=== PATIENT | female | born 1990 | race Caucasian/White ===

== ENCOUNTER 2018-04-18 11:36 | Observation (INO) ==
[2018-04-18] MEDS ORDERED: Sodium Chloride 0.9% 1,000 ML PRIMARY IV SCH (11:45)
[2018-04-18] MEDS ORDERED: EPINEPHrine Inj (1:1,000) 1 mg/ml amp ONE (12:23)
[2018-04-18] MEDS ORDERED: ePHEDrine Inj 50 MG/ML AMP ONE (12:24)
[2018-04-18] MEDS: Acetaminophen 1000mg Inj 1,000 MG/100 ML VIAL IV PRN ×2 (12:47→18:58)
[2018-04-18] MEDS ORDERED: [UNRECOGNIZED DRUG - OTHER] PO ONE (14:52)
[2018-04-18] MEDS ORDERED: Sodium Chloride 0.9% 1,000 ML PRIMARY IV ONE (17:32)
[2018-04-18] MEDS ORDERED: CALCIUM CARBONATE 500 MG (TUMS) CHEWABLE TABLET PO PRN (17:38)
[2018-04-18] MEDS ORDERED: ONDANSETRON 4 MG/2 ML VIAL IVP PRN (17:38)
[2018-04-18] MEDS ORDERED: Ondansetron ODT Tab 4 MG TAB PO PRN (17:38)
--- NOTE | 2018-04-18 17:53 | PDOC ---
HPI - History of Present Illness Date of Service: 04/18/18 Time of Service: 17:48 Chief Complaint: Fever History of Present Illness: 27 yo at 31 4/7 weeks gestation presented to clinic with fever, cough. She states she started getting sick on Tuesday evening with fever, cough. Has gotten progressively worse. Fevers to 103, tachycardia. She did get the flu shot. No specific sick contacts but [place] this [place] and had her baby shower Tuesday. Associated CAPONE. No rash, nausea, vomiting, diarrhea. Reports good FM, no loss of fluid, vaginal bleeding. Rare contractions. Tested positive for Influenza A in the clinic. Last dose of tylenol was 0530. Has been taking 500mg po q6h. Past Medical History Medical History: Preeclampsia Surgical History: Tonsillectomy Pertinent Family History: Mother - MS. Father - Leukemia Tobacco Use: Never Smoker In the Past 12 Months, Have Used or Abuse Any of the Following Substance: None Alcohol Use: None Medication / Allergies Home Medications: Home Medications Medication Instructions Recorded Confirmed Type vitamins no.121-iron 28 1 tab PO QDAY tab 11/14/17 04/19/18 History mg-folic acid 800 mcg tablet aspirin 81 mg chewable tablet 162 mg PO QDAY tab 03/13/18 04/19/18 History acetaminophen 500 mg tablet 500 mg PO Q6H PRN 04/18/18 04/19/18 History Multivitamin Tab 1 tab PO DAILY tab 04/19/18 Rx [ Plus Tab] Allergies/Adverse Reactions: Allergies Allergy/AdvReac Type Severity Reaction Status Date / Time codeine [Codeine] Allergy HIVES Verified 04/19/18 07:02 Penicillins AdvReac Mild UNKNOWN Verified 04/19/18 07:02 Exam - Vitals Vital Signs: Vital Signs Temperature 99.8 F Temperature Source Oral Pulse Rate [Pulse Oximeter] 120 Pulse Rate 120 Respiratory Rate 18 Blood Pressure [Right Arm] 140/70 Blood Pressure [Left Arm] 138/68 Pulse Ox 97 Oxygen Flow Rate 94 Oxygen Delivery Method Room Air Height 5 ft 5 in Weight 224 lb 6 oz - General General Appearance: Mild Distress - Head Head Exam: Normal Inspection - Eye Eye Exam: POSITIVE: Normal Appearance, EOMI - ENT ENT Exam: POSITIVE: Normal Exam - Neck Neck Exam: Normal Inspection, No Lymphadenopathy - Respiratory Respiratory Exam: POSITIVE: Clear to Auscultation - Bilaterally, Breathing Non Labored. NEGATIVE: Rales, Rhonci, Wheezes, Respiratory Distress Additional Respiratory Exam Details: Cough - Cardiovascular Cardiovascular Exam: POSITIVE: Tachycardia - GI/Abdominal Additional GI/Abdominal Exam Details: gravid uterus, heart tones 210 in clinic, 150s after tylenol, fluids - Neurological Neurological Exam: POSITIVE: Alert, Oriented x 3 - Psychiatric Psychiatric Exam: POSITIVE: Normal Affect, Normal Mood Assessment and Plan - Patient Problems (1) Influenza A Status: Acute Code(s): J10.1 - Influenza due to other identified influenza virus with other respiratory manifestations (2) 31 weeks gestation of Status: Acute Code(s): Z3A.31 - 31 weeks gestation of Support Text: 27 yo at 31 4/7 weeks gestation with influenza A -Admit to Inpatient -Xofluza 80 mg given (h/o hallucination on tamiflu) -1L NS bolus then LR at 125cc/hr -Tylenol 1000mg IV q6h for fever -Regular diet -NSTs q4h -Anticipate 24-48 hour stay
[2018-04-18] MEDS: Lactated Ringers 1,000 ML PRIMARY IV SCH (17:54)
[2018-04-19] MEDS: Acetaminophen 1000mg Inj 1,000 MG/100 ML VIAL IV PRN (00:31)
[2018-04-19] MEDS: Lactated Ringers 1,000 ML PRIMARY IV SCH (01:48)
[2018-04-19 08:05] VITALS: RESP 16; TEMP 97; O2SAT 94
[2018-04-19 08:07] VITALS: BP 122/62
[2018-04-19] MEDS ORDERED: Prenatal Multivitamin Tab 1 TAB TAB PO SCH (09:00)
--- NOTE | 2018-04-19 11:32 | DCSUMMARY ---
Hospitalization Summary Admit Date: 04/18/18 Discharge Date: 04/19/18 Primary Diagnosis:: Influenza Hospital Course: 27 yo at 31 5/7 weeks gestation was admitted yesterday for Influenza A with fever, tachycardia. She did receive a dose of Xofluza. T max of 99.8 since admission. HR has come down. Patient is feeling much better. States she didn't get as much rest as she would have liked, but feeling much better. Good FM, no LOF, no VB. tachycardia was noted on admission NST but this too has improved. (See scanned NSTs) Exam - Vitals Vital Signs: Vital Signs Temperature 97 F Temperature Source Temporal Artery Scan Pulse Rate [Pulse Oximeter] 91 Pulse Rate 104 Respiratory Rate 16 Blood Pressure [Right Arm] 122/62 Blood Pressure [Left Arm] 138/68 Pulse Ox 94 Oxygen Flow Rate 94 Oxygen Delivery Method Room Air Height 5 ft 5 in Weight 221 lb 6.4 oz - General General Appearance: No Acute Distress, Cooperative - Head Head Exam: Normal Inspection - Eye Eye Exam: POSITIVE: Normal Appearance, EOMI, No Scleral Icterus - ENT ENT Exam: POSITIVE: Normal Exam - Neck Neck Exam: Normal Inspection - Respiratory Respiratory Exam: POSITIVE: Clear to Auscultation - Bilaterally, Breathing Non Labored. NEGATIVE: Wheezes, Coarse Breath Sounds, Respiratory Distress - Cardiovascular Cardiovascular Exam: POSITIVE: RRR - GI/Abdominal GI/Abdominal Exam: POSITIVE: Normal Bowel Sounds Additional GI/Abdominal Exam Details: gravid uterus, nontender - Extremities Extremities Exam: POSITIVE: Normal Inspection Patient Problems - Patient Problem List (1) Influenza A Status: Acute Code(s): J10.1 - Influenza due to other identified influenza virus with other respiratory manifestations Category: Medical (2) 31 weeks gestation of Status: Acute Code(s): Z3A.31 - 31 weeks gestation of Support Text: Much improved. Push fluids at home, tylenol q6h prn F/u with me next week, sooner for any concerns, precautions Category: Medical
== END 2018-04-19 11:33 | disposition home or self-care (01) ==
LOC: MED/SURG
PROVIDERS: ADMIT Student in an Organized Health Care Education/Training Program; ATTEND Student in an Organized Health Care Education/Training Program

== ENCOUNTER 2018-05-28 17:14 | Observation (INO) ==
[2018-05-28 18:10] LABS: Hematocrit [HCT] 36.4 % (37.0-47.0); Hemoglobin [HGB] 11.9 g/dL (12.0-16.0); MEAN CORPUSCULAR HEMOGLOBIN 29.2 PG (27-31); MEAN CORPUSCULAR HGB CONC 32.7 g/dL (33-37); MEAN CORPUSCULAR VOLUME 89.2 FL (81-99); MEAN PLATELET VOLUME 10.6 FL (7.4-12.2); RED BLOOD COUNT 4.08 10^6/uL (4.20-5.40)
[2018-05-28 18:11] LABS: BLOOD UREA NITROGEN 8 mg/dL (7-22); BUN/CREATININE RATIO 13.33 (6-20); SERUM ALBUMIN 3.4 g/dL (3.5-4.8); Uric Acid 4.7 mg/dl (2.5-6.2)
[2018-05-28] MEDS ORDERED: LIDOCAINE W/ SODIUM BICARB 0.5 ML SYR SUBD PRN (18:25)
[2018-05-28] MEDS ORDERED: CALCIUM CARBONATE 500 MG (TUMS) CHEWABLE TABLET PO PRN (18:25)
[2018-05-28] MEDS ORDERED: ONDANSETRON 4 MG/2 ML VIAL IVP PRN (18:25)
[2018-05-28] MEDS ORDERED: Ondansetron ODT Tab 4 MG TAB PO PRN (18:25)
[2018-05-28] MEDS ORDERED: Lactated Ringers 1,000 ML PRIMARY IV SCH (18:45)
[2018-05-28] MEDS ORDERED: ACETAMINOPHEN 325 MG TABLET PO PRN (20:17)
[2018-05-28] MEDS ORDERED: Zolpidem Tab 5 MG TAB PO ONE (23:13)
[2018-05-29] MEDS ORDERED: ACETAMINOPHEN 500 MG TABLET PO ONE (06:44)
[2018-05-29 07:12] LABS: Hematocrit [HCT] 35.9 % (37.0-47.0); Hemoglobin [HGB] 11.8 g/dL (12.0-16.0); MEAN CORPUSCULAR HEMOGLOBIN 29.1 PG (27-31); MEAN CORPUSCULAR HGB CONC 32.9 g/dL (33-37); MEAN CORPUSCULAR VOLUME 88.6 FL (81-99); MEAN PLATELET VOLUME 10.1 FL (7.4-12.2); RED BLOOD COUNT 4.05 10^6/uL (4.20-5.40)
[2018-05-29 07:21] LABS: BLOOD UREA NITROGEN 6 mg/dL (7-22); SERUM ALBUMIN 3.2 g/dL (3.5-4.8); Uric Acid 4.9 mg/dl (2.5-6.2)
[2018-05-29] MEDS ORDERED: oxyCODONE IR Tab 5 MG TAB PO ONE (08:39)
--- NOTE | 2018-05-29 08:52 | OB.PROGRES ---
Date of Service: 05/29/18 Time of Service: 08:46 Interval History: 27 yo at 39 3/7 weeks gestation who presented last night with a CAPONE, general fatigue, weakness. States she took tylenol at 2 pm, with no relief in her CAPONE. She also complains of increased edema, her has noted edema in her face even. Upon arrival to L&D last night her weight was up 6 lbs from . Her initial BP was 141/79, three hours later she had a 145/71. Since then BPs have been completely normal. She was given ambien and tylenol last night, slept pretty well. This morning she had a CAPONE again, b/l temples, was given 1000mg tylenol with some improvement, but not resolved at this point. She states she feels better than she did yesterday but just feels off. She did not feel like this when she was induced in prior pregnancies with preeclampsia. Good FM, no LOF, VB. Occ contractions, very mild. Objective - Cervical Exam Cervical Exam: Finger tip, posterior, -3 [place]: rare contractions/irritability Heart Rate: baseline 145, mod variability, accels, no decels Heart Rate Interpretation Category: Category I - Labs CBC and BMP: 05/29/18 07:09 05/29/18 07:09 - Vital Signs Last Taken Vital Signs: Vital Signs - Last Taken Temperature 98.1 F 05/29/18 02:30 Pulse Rate 79 05/29/18 02:30 Respiratory Rate 14 05/29/18 02:30 Blood Pressure 133/76 05/29/18 02:30 Pulse Ox 98 05/29/18 02:30 Assessment and Plan - Patient Problems (1) Headache Current Visit: Yes Status: Acute Code(s): R51 - Headache (2) H/O pre-eclampsia in prior , currently Current Visit: No Status: Acute Code(s): O09.299 - Supervision of with other poor reproductive or obstetric history, unspecified trimester Support Text: 27 yo at 37 3/7 weeks gestation. Continued CAPONE, although improved. Will see how she feels after breakfast, tylenol. Will also check a random spot urine protien:Cr ration. Labs and blood pressure reassuring this morning. However if we can't get her CAPONE to resolve, this would technically be a severe feature of preeclampsia, and thus induction necessary.
[2018-05-29] MEDS ORDERED: Prenatal Multivitamin Tab 1 TAB TAB PO SCH (09:00)
[2018-05-29] MEDS ORDERED: MORPHINE SULFATE 2 MG/1 ML IVP ONE ×2 (13:48→15:06)
[2018-05-29] MEDS ORDERED: Promethazine Tab 25 MG TAB PO ONE (13:48)
[2018-05-29 17:11] VITALS: RESP 18; TEMP 97.9; O2SAT 97
[2018-05-29 17:28] VITALS: BP 122/72
--- NOTE | 2018-05-31 15:18 | DCSUMMARY ---
Hospitalization Summary Admit Date: 05/28/18 Discharge Date: 05/29/18 Primary Diagnosis:: CAPONE, h/o preeclampsia Hospital Course: 27 yo at 39 3/7 weeks gestation admitted last night for elevated BP on presentation with CAPONE. She was given ambien to sleep, tylenol. States she did rest but CAPONE did not resolve. We tried tylenol again in the am with no improvement. No improvement with O2. Her CAPONE did completely resolve with morphine and phenergan. Her BP were normal after admission. Labs have been reassuring. Urine spot pr:cr <0.3. monitoring has been normal. While she is high risk for preeclampsia, she does not meet criteria at this point. Will continue an tenatal monitoring. F/u with me tomorrow morning as previously scheduled. Exam - Vitals Vital Signs: Vital Signs Temperature 97.9 F Temperature Source Oral Pulse Rate [Pulse Oximeter] 93 Pulse Rate 79 Respiratory Rate 18 Blood Pressure [Left Arm] 122/72 Pulse Ox 97 Oxygen Delivery Method Room Air Height 5 ft 5 in Weight 231 lb Patient Problems - Patient Problem List (1) Headache Status: Acute Code(s): R51 - Headache Category: Medical (2) H/O pre-eclampsia in prior , currently Status: Acute Code(s): O09.299 - Supervision of with other poor reproductive or obstetric history, unspecified trimester Category: Medical
== END 2018-05-29 17:31 | disposition home or self-care (01) ==
LOC: OBIP 17:14 → OBOP 17:14
PROVIDERS: ADMIT Student in an Organized Health Care Education/Training Program; ATTEND Student in an Organized Health Care Education/Training Program

== ENCOUNTER 2018-06-08 08:53 | Inpatient (IN) ==
[2018-06-08 10:44] LABS: Hematocrit [HCT] 37.3 % (37.0-47.0); Hemoglobin [HGB] 12.1 g/dL (12.0-16.0); MEAN CORPUSCULAR HEMOGLOBIN 28.8 PG (27-31); MEAN CORPUSCULAR HGB CONC 32.4 g/dL (33-37); MEAN CORPUSCULAR VOLUME 88.8 FL (81-99); MEAN PLATELET VOLUME 10.6 FL (7.4-12.2); RED BLOOD COUNT 4.2 10^6/uL (4.20-5.40)
[2018-06-08 10:51] LABS: BLOOD UREA NITROGEN 9 mg/dL (7-22); SERUM ALBUMIN 3.5 g/dL (3.5-4.8); Uric Acid 4.8 mg/dl (2.5-6.2)
--- NOTE | 2018-06-08 11:24 | DI ---
US OB Biophys Profile w/NST,06/08/2018 10:14 AM: Clinical History: Hypertension and nonreactive nonstress test. Previous Exam: June 01, 2018 Findings: Multiple grayscale and color Doppler sonographic images are obtained through the pelvis and demonstra te a single live intrauterine gestation. Detected Doppler heart tones measure 146 beats per minute. There is normal motion of the hemidiaphragms there is normal tone and motion of the extremities. Amniotic fluid index is normal her just measurement in the left upper quadrant measuring a cross-sect ional diameter of 9 x 5 cm. Impression: Normal biophysical profile (09/14).
[2018-06-08] MEDS ORDERED: Carboprost Inj 250 MCG/ML AMP IM PRN (12:13)
[2018-06-08] MEDS ORDERED: fentaNYL Inj 100 MCG/2 ML VIAL IV PRN (12:13)
[2018-06-08] MEDS ORDERED: MISOPROSTOL 200 MCG TABLET RECTAL PRN (12:13)
[2018-06-08] MEDS ORDERED: TERBUTALINE SULFATE 1 MG/1 ML SDV SUBCUT PRN (12:13)
[2018-06-08] MEDS ORDERED: FAMOTIDINE 20 MG/2 ML VIAL IVP PRN ×2 (12:13)
[2018-06-08] MEDS ORDERED: ePHEDrine Inj 50 MG/ML AMP IVP PRN (12:13)
[2018-06-08] MEDS ORDERED: CefOXitin Inj 2 GM in Sodium Chloride 0.9% 100 ML IV PRN (12:13)
[2018-06-08] MEDS ORDERED: LIDOCAINE W/ SODIUM BICARB 0.5 ML SYR SUBD PRN (12:13)
[2018-06-08] MEDS ORDERED: Naloxone Inj 0.01 MG in Sodium Chloride 0.9% vial 1 ML IVP PRN (12:13)
[2018-06-08] MEDS ORDERED: Metoclopramide Inj 10 MG/2 ML VIAL IV PRN (12:13)
[2018-06-08] MEDS ORDERED: LIDOCAINE HCL 2 % 10 ML JELLY URO-JECT TOPICAL PRN (12:13)
[2018-06-08] MEDS ORDERED: Misoprostol Tab 100 MCG TAB VAGINAL PRN (12:13)
[2018-06-08] MEDS ORDERED: Phenylephrine Inj 50 MCG in Sodium Chloride 0.9% vial 0.5 ML IVP PRN (12:13)
[2018-06-08] MEDS ORDERED: OXYTOCIN 10 UNIT/1 ML IM PRN (12:13)
[2018-06-08] MEDS ORDERED: diphenhydrAMINE 50 MG/1 ML VIAL IVP PRN (12:13)
[2018-06-08] MEDS ORDERED: Zolpidem Tab 5 MG TAB PO PRN (12:13)
[2018-06-08] MEDS ORDERED: CITRIC ACID/SODIUM CITRATE 30 ML CUP PO PRN (12:13)
[2018-06-08] MEDS ORDERED: Lidocaine 1% 10 MG/ML - 20 ML VIAL SUBCUT PRN (12:13)
[2018-06-08] MEDS ORDERED: BUTORPHANOL TARTRATE 2 MG/1 ML VIAL IVP PRN (12:13)
[2018-06-08] MEDS ORDERED: Nalbuphine Inj 20 MG/ML Ampule IVP PRN (12:13)
[2018-06-08] MEDS ORDERED: NALOXONE 0.4 MG/1 ML VIAL IVP PRN (12:13)
[2018-06-08] MEDS ORDERED: METHYLERGONOVINE MALEATE 0.2 MG/1 ML VIAL IM PRN (12:13)
[2018-06-08] MEDS ORDERED: ONDANSETRON 4 MG/2 ML VIAL IVP PRN (12:13)
[2018-06-08] MEDS ORDERED: CALCIUM CARBONATE 500 MG (TUMS) CHEWABLE TABLET PO PRN (12:13)
[2018-06-08] MEDS ORDERED: Oxytocin 20 Units + LR 20 UNIT/1,000 ML BAG IV SCH (12:15)
[2018-06-08] MEDS ORDERED: Misoprostol Tab 100 MCG TAB VAGINAL ONE (12:22)
[2018-06-08] MEDS: Lactated Ringers-OB Dept 1,000 ML PRIMARY IV SCH ×2 (14:23→17:38)
--- NOTE | 2018-06-08 14:25 | DI ---
US OB , Limited,06/08/2018 10:00 AM: Clinical History: Preeclampsia. Previous Exam: May 09, 2018 Findings: Multiple grayscale and color Doppler sonographic images are obtained through the pelvis, and demonstr ate a single live intrauterine gestation in vertex presentation. Amniotic fluid index is normal (18.8 cm). Doppler heart tones were not visible on this exam. Estimated gestational age is determined by a composite of biparietal diameter, head circumference, ab dominal circumference and femur length yielding an estimated gestational age by ultrasound of 37 week s one day. The head circumference lies at the 4th percentile. Estimated weight was 3127 g (29th percentile). Detected Doppler heart tones measure 146 beats per minute. Impression: Single live intrauterine gestation with size equal to dates. Head circumference lies at the 4th percentile while biparietal diameter lies at the 29th percentile.
[2018-06-08] MEDS ORDERED: ACETAMINOPHEN 325 MG TABLET PO ONE (20:02)
[2018-06-09] MEDS: Lactated Ringers-OB Dept 1,000 ML PRIMARY IV SCH ×4 (01:36→14:43)
[2018-06-09] MEDS ORDERED: Oxytocin 20 Units + LR 20 UNIT/1,000 ML BAG IV SCH ×2 (07:00→18:08)
--- NOTE | 2018-06-09 08:24 | OB.PROGRES ---
Date of Service: 06/09/18 Time of Service: 08:18 Interval History: 27 yo at 39 0/7 weeks gestation today, admitted yesterday afternoon for IOL 2/2 preclampsia. She received 1 dose of cytotec at about 1530 yesterday, continued to contract through the night so we were unable to place another. Pitocin was started at 0703 this morning. Patient is reporting her contractions as a 4/10. She denies CAPONE, vision changes, RUQ pain. Blood pressures hae been better since admission. OB history notable for preeclampsia x2 with one delivery. Objective - Cervical Exam Cervical Exam: /-2 [place] Vo: q2-3 minutes Heart Rate: baseline 145, mod variability, accels, occasional late decels Heart Rate Interpretation Category: Category II - Labs CBC and BMP: 06/08/18 10:21 06/08/18 10:21 - Vital Signs Last Taken Vital Signs: Vital Signs - Last Taken Temperature 98 F 06/09/18 05:30 Pulse Rate 96 06/09/18 07:00 Respiratory Rate 14 06/09/18 05:30 Blood Pressure 116/68 06/09/18 06:00 Pulse Ox 96 06/09/18 05:30 Assessment and Plan - Patient Problems (1) Preeclampsia Current Visit: Yes Status: Acute Code(s): O14.90 - Unspecified pre- eclampsia, unspecified trimester (2) Term Current Visit: Yes Status: Acute Code(s): Z34.80 - Encounter for supervision of other normal , unspecified trimester (3) H/O pre-eclampsia in prior , currently Current Visit: No Status: Acute Code(s): O09.299 - Supervision of with other poor reproductive or obstetric history, unspecified trimester Support Text: 27 yo at 39 0/7 weeks gestation, admitted for iol in setting of preeclampsia. BP normal currently. S/p 1 dose of cytotec, on pitocin. Continue close observation. GBS negative. Will want an epidural.
[2018-06-09] MEDS ORDERED: ACETAMINOPHEN 325 MG TABLET PO ONE (08:33)
[2018-06-09] MEDS ORDERED: Lidocaine/Epi Inj 1.5% 5 ML AMPUL EPIDURAL ONE (14:48)
[2018-06-09] MEDS ORDERED: LIDOCAINE MPF 2% - 5 ML (20 MG/1 ML) ONE (14:49)
[2018-06-09] MEDS ORDERED: Fent/Bupiv 2mcg/0.0625% Epid 250 ML ONE (14:59)
--- NOTE | 2018-06-09 15:05 | CRNA.PROCE ---
Central Neuraxis Block Placemt - - Safety Measures: Time Out Taken - - Type of Block: Epidural Reason for Block: Analgesia Moniters Used During Block: SPO2, NIBP Positioning: Sitting Skin Prep Used: ChloroPrep Skin Infiltration - Enter Amount Used in Comment Field: 1% Xylocaine (mL): Yes (skin wheal) Spinal Needle Used: 18 Hustead 80 mm Local Anesthetic - Enter Amount Used in Comment Field: 1.5 % Xylocaine with Epinephrine 1:200,000 (mL): Yes (5ml) Bioclusive Dressing Applied: Yes Anesthesia Time - Other Weight: 101.151 kg Height: 5 ft 5 in Body Mass Index (BMI): 37.0
--- NOTE | 2018-06-09 15:07 | CRNA.PROGR ---
Anesthesia Time - Procedure/Recovery Time Start Date: 06/09/18 End Date: 06/09/18 Anesthesia : Time In: 14:40 Anesthesia : Time Out: 16:29 Anesthesia : Total Time: 109 - Total Anesthesia Time Total Anesthesia Time (minutes): 109 - Other Weight: 101.151 kg Height: 5 ft 5 in Body Mass Index (BMI): 37.0 Physical Status: P2 Anesthesia Type: Epidural Obstetrics: Planned vaginal delivery w/ neuraxial labor anesthesia/analog
[2018-06-09] MEDS ORDERED: fentaNYL 2 MCG/BUPIVACAINE 0.0625%/NS 0.9% 250 ML BAG EPIDURAL SCH (15:15)
--- NOTE | 2018-06-09 16:39 | OB.DEL.SUM ---
Delivery Note Delivery Summary: 27 yo G4 now P2113 was admitted yesterday afternoon for IOL 2/2 preeclampsia. She received 1 dose of cytotec pv, contracted through the night, then was started on pitocin this morning about 0700. AROM was accomplished at 1238 with clear fluid and was 4cm dilated. She received her epidural at 1452. As she laid back she felt pressure and was noted to be complete. She pushed over a few contractions. She delivered a TAGA female in ALONDRA position over an intact perineum at 1529. No nuchal cord was noted. Her head, shoulders, and body were delivered easily. Infant was placed on a warm recieving blanket on mom's chest. Cord clamping was delayed approx 45 seconds. Cord was doubly clamped and cut by the father. Her placenta delivered spontaneously, intact, with 3-vessel cord at 1532. She had a R labial laceration that was repaired with a 3-0 vicryl rapide in running fashion. Her bladder was drained with a red rubber, probably about 200 cc. EBL 250cc. Mom and baby tolerated delivery well. Will plan to monitor BPs closely and recheck a Gestational HTN panel in the morning. - Patient Problems (1) Preeclampsia Current Visit: Yes Status: Acute Code(s): O14.90 - Unspecified pre- eclampsia, unspecified trimester (2) Term Current Visit: Yes Status: Acute Code(s): Z34.80 - Encounter for supervision of other normal , unspecified trimester (3) H/O pre-eclampsia in prior , currently Current Visit: No Status: Acute Code(s): O09.299 - Supervision of with other poor reproductive or obstetric history, unspecified trimester
[2018-06-09] MEDS ORDERED: GLYCERIN/WITCH HAZEL 1 BOX TOPICAL PRN (18:08)
[2018-06-09] MEDS ORDERED: CALCIUM CARBONATE 500 MG (TUMS) CHEWABLE TABLET PO PRN (18:08)
[2018-06-09] MEDS ORDERED: ACETAMINOPHEN 325 MG TABLET PO PRN (18:08)
[2018-06-09] MEDS ORDERED: Nalbuphine Inj 20 MG/ML Ampule IVP PRN (18:08)
[2018-06-09] MEDS ORDERED: diphenhydrAMINE 25 MG CAPSULE PO PRN (18:08)
[2018-06-09] MEDS ORDERED: Ondansetron ODT Tab 4 MG TAB PO PRN (18:08)
[2018-06-09] MEDS ORDERED: LANOLIN HPA 40 GM TUBE TOPICAL PRN (18:08)
[2018-06-09] MEDS ORDERED: ONDANSETRON 4 MG/2 ML VIAL IVP PRN (18:08)
[2018-06-09] MEDS ORDERED: diphenhydrAMINE 50 MG/1 ML VIAL IVP PRN (18:08)
[2018-06-09] MEDS ORDERED: Lidocaine 1% 10 MG/ML - 20 ML VIAL INTRADERM PRN (18:08)
[2018-06-09] MEDS ORDERED: BENZOCAINE/MENTHOL SPRAY 56 GM BOTTLE TOPICAL PRN (18:08)
[2018-06-09] MEDS ORDERED: LIDOCAINE HCL 2 % 10 ML JELLY URO-JECT TOPICAL PRN (18:08)
[2018-06-09] MEDS: IBUPROFEN 800 MG TABLET PO PRN (19:28)
[2018-06-10 05:43] LABS: Hematocrit [HCT] 35.5 % (37.0-47.0); Hemoglobin [HGB] 11.7 g/dL (12.0-16.0); MEAN CORPUSCULAR HEMOGLOBIN 29.2 PG (27-31); MEAN CORPUSCULAR VOLUME 88.5 FL (81-99); RED BLOOD COUNT 4.01 10^6/uL (4.20-5.40)
[2018-06-10 06:02] LABS: BLOOD UREA NITROGEN 8 mg/dL (7-22); BUN/CREATININE RATIO 13.33 (6-20); SERUM ALBUMIN 2.8 g/dL (3.5-4.8)
[2018-06-10] MEDS: IBUPROFEN 800 MG TABLET PO PRN (08:59)
[2018-06-10] MEDS ORDERED: Prenatal Multivitamin Tab 1 TAB TAB PO SCH (09:00)
[2018-06-10] MEDS ORDERED: DOCUSATE 100 MG CAPSULE PO SCH (09:00)
[2018-06-10 09:03] VITALS: RESP 18
--- NOTE | 2018-06-10 11:52 | DCSUMMARY ---
Hospitalization Summary Admit Date: 06/08/18 Discharge Date: 06/10/18 Primary Diagnosis:: s/p , Preeclampsia Delivery Type: Vaginal Hospital Course: 27 yo G4 now P2112 was admitted on 06/08/18 after she was noted to have elevated pressures at her routine testing. She has a h/o preeclampsia in both prior pregnancies, one requiring a delivery. She took baby asa through this and has been monitored closely. She did have a 24 hour urine protein of 301 mg in early May. Had an elevated BP early last week as well. Cervical ripening was started with 1 dose of pv cytotec. She was then bita too frequently to repeat. She was started on pitocin and then progressed quite rapidly after AROM. She delivered a TAGA female infant, 6 lbs 10.3 oz, at 39 0/7 weeks gestation. she has done well. Did have a large clot last night but bleeding has been minimal since then. Labs looked good this morning. Her most recent BP was 139/79. Will check again prior to discharge and have her return tomorrow for recheck if needed. / Postop Complications: No apparent complications Complications: none apparent Exam - Vitals Vital Signs: Vital Signs Temperature 97.8 F Temperature Source Oral Pulse Rate [Pulse Oximeter] 84 Pulse Rate [left hand] 89 Pulse Rate 92 Respiratory Rate 18 Blood Pressure [Left Arm] 128/99 Blood Pressure [Right Arm] 139/78 Blood Pressure 137/75 Pulse Ox [left hand] 100 Pulse Ox 99 Oxygen Delivery Method [left Room Air hand] Oxygen Delivery Method Room Air Height 5 ft 5 in Weight 223 lb - General General Appearance: No Acute Distress, Cooperative - Head Head Exam: Normal Inspection - Respiratory Respiratory Exam: POSITIVE: Clear to Auscultation - Bilaterally, Breathing Non Labored - Cardiovascular Cardiovascular Exam: POSITIVE: RRR - GI/Abdominal GI/Abdominal Exam: POSITIVE: Normal Bowel Sounds Additional GI/Abdominal Exam Details: Uterus firm - Extremities Extremities Exam: POSITIVE: No Edema Present, Negative Rufino's sign. NEGATIVE: Calf Tenderness - Neurological Neurological Exam: POSITIVE: Alert, Oriented x 3 - Psychiatric Psychiatric Exam: POSITIVE: Normal Affect, Normal Mood - Integumentary Integumentary Exam: POSITIVE: Warm, Dry Data Peritnent Studies: 06/08/18 06/08/18 06/08/18 10:21 10:21 10:38 WBC 12.56 H Hgb 12.1 Hct 37.3 Plt Count 331 Uric Acid 4.8 Total Bilirubin 0.2 L AST 20 ALT 14 Alkaline Phosphatase 193 H Lactate Dehydrogenase 355 Ur Random Creatinine 165.9 U Random Total Protein 11 06/10/18 06/10/18 05:00 05:00 WBC 13.79 H Hgb 11.7 L Hct 35.5 L Plt Count 294 Uric Acid 5.0 Total Bilirubin 0.2 L AST 18 ALT 23 D Alkaline Phosphatase 169 H Lactate Dehydrogenase 461 Ur Random Creatinine U Random Total Protein Patient Problems - Patient Problem List (1) Preeclampsia Current Visit: Yes Status: Acute Code(s): O14.90 - Unspecified pre- eclampsia, unspecified trimester Category: Medical (2) Term Current Visit: Yes Status: Acute Code(s): Z34.80 - Encounter for supervision of other normal , unspecified trimester Category: Medical (3) H/O pre-eclampsia in prior , currently Current Visit: No Status: Acute Code(s): O09.299 - Supervision of with other poor reproductive or obstetric history, unspecified trimester Support Text: 27 yo G4 now P2113, PPD 1 Pain well controlled Breast and bottle feeding Continue to monitor BP closely Likely d/c this afternoon with BP check in next couple of days Planning to do a Mirena for PP contraception Category: Medical
[2018-06-10 12:58] VITALS: TEMP 98
[2018-06-10 16:06] VITALS: BP 131/75; O2SAT 98
== END 2018-06-10 16:40 | disposition home or self-care (01) | DRG 807 ==
LOC: OBOP 08:53 → OBIP 11:30
PROVIDERS: ADMIT Student in an Organized Health Care Education/Training Program; ATTEND Student in an Organized Health Care Education/Training Program